=== PATIENT | female | born 1945 | race Caucasian/White ===

== ENCOUNTER 2017-03-19 10:54 | Inpatient (IN) | payer OTHER ==
[~2017-03-19] VITALS: Ht 154.9 cm; Wt 71.3 kg
[~2017-03-19 10:54] MED LIST: AMLO-511 PO; ASCO500T24 PO; ASPI81TA2 PO; CARB200T6 PO; CITA40TA14 PO; CYAN500 PO; DIVA500T35 PO; DOCU-119 PO; DONE10TA PO; FERR-89 PO; FOLI1 PO; GABA-531 PO; LORA0.5T83 PO; MEGE400O4 PO; MULT-1203 PO; NAPR-58 PO; PANT40TA25 PO; PILOC5 PO; PREG50 PO; QUET50TA22 PO; SUMA25TA9 PO; THIA100 PO; THIO50TA PO; TOPI50TA90 PO; TRAM50TA4 PO; TRAZ-144 PO; VITAD1000 PO
[2017-03-19 11:12] LABS: GLUCOSE,POINT OF CARE 112 MG/DL (70-110)
[2017-03-19] MEDS ORDERED: PLEC3TAB PO (11:12)
[2017-03-19] MEDS ORDERED: LINA72CA PO (11:12)
[2017-03-19] MEDS ORDERED: LEVO250 PO (11:12)
[2017-03-19] MEDS ORDERED: METR500 PO (11:12)
[2017-03-19] MEDS ORDERED: ONDANSETRON HCL 4 MG/2 ML VIAL IVP ONE (11:45)
[2017-03-19] MEDS ORDERED: MORPHINE SULFATE 4 MG/ML SYRINGE IVP ONE (11:45)
[2017-03-19 12:01] LABS: BASOPHILS # (AUTO) 0.03 K/uL (0.00-0.20); BASOPHILS % (AUTO) 0.8 % (0.0-2.0); EOSINOPHILS % (AUTO) 0.07 % (1.0-6.0); HEMATOCRIT 31.9 % (36-46); HEMOGLOBIN 10.6 g/dL (12.0-16.0); LYMPHOCYTES % (AUTO) 23.2 % (22.0-44.0); MEAN CORPUSCULAR HEMOGLOBIN 35.9 pg (26.0-34.0); MEAN CORPUSCULAR HGB CONC 33.1 G/dL (31.0-37.0); MEAN CORPUSCULAR VOLUME 108 fL (80-100); MONOCYTES # (AUTO) 0.4 K/uL (0.1-1.0); MONOCYTES % (AUTO) 9.9 % (2.0-9.0); NEUTROPHILS # (AUTO) 2.7 K/uL (1.8-7.7); NEUTROPHILS % (AUTO) 66.1 % (40.0-70.0); PLATELET COUNT (AUTO) 338 K/uL (150-450); RED BLOOD CELL COUNT(AUTO) 2.95 MIL/uL (4.00-5.20); RED CELL DISTRIBUTION WIDTH 18.6 % (11.5-14.5); WHITE BLOOD COUNT (AUTO) 4.2 K/uL (4.5-11.0)
[2017-03-19 12:10] LABS: RBC MORPHOLOGY COMMENT ABNORMAL RBC MORPH
[2017-03-19 12:12] LABS: ANION GAP 9 mmol/L (8-16); CALCIUM, TOTAL 8.4 mg/dL (8.8-10.5); CARBON DIOXIDE 27 mmol/L (22-29); CHLORIDE 92 mmol/L (98-107); CREATININE 0.66 mg/dL (0.60-1.30); GLOMERULAR FILTR. RATE CALC > 60 mL/min (>60); POTASSIUM 3.8 mmol/L (3.5-5.1); SODIUM SERUM 128 mmol/L (136-145); UREA NITROGEN, BLOOD 6 mg/dL (7-18)
[2017-03-19 12:18] LABS: ALANINE AMINOTRANSFERASE 22 U/L (12-78); ALBUMIN 3.8 g/dL (3.4-5.0); ASPARTATE AMINOTRANSFERASE 13 U/L (15-37); BILIRUBIN,TOTAL 0.5 mg/dL (0.1-1.0); TOTAL PROTEIN, SERUM 6.7 g/dL (6.4-8.2)
[2017-03-19] MEDS ORDERED: LORazepam 2 MG/ML VIAL IVP ONE (12:45)
[2017-03-19 12:51] LABS: APPEARANCE,URINE CLEAR (CLEAR); GLUCOSE, URINE (UA) NEGATIVE (NEGATIVE); KETONES,URINE 15 mg/dL (NEGATIVE); LEUKOCYTE ESTERASE ,URINE NEGATIVE (NEGATIVE); OCCULT BLOOD,URINE NEGATIVE (NEGATIVE); PH,URINE 7.5 (5.0-8.0); PROTEIN,URINE NEGATIVE (NEGATIVE)
[2017-03-19 12:53] LABS: ADD UA MICROSCOPIC NO
[2017-03-19] MEDS ORDERED: BARIUM SULFATE 0.1% SUSPENSION 450 ML BOTTLE PO ONE (13:00)
[2017-03-19 13:29] LABS: LACTIC ACID 2.4 mmol/L (0.4-2.0)
[2017-03-19] MEDS ORDERED: IOVERSOL 350 MG/ML 100 ML VIAL ONE (13:56)
[2017-03-19 14:41] LABS: REFLEX LACTIC ACID? YES YES
[2017-03-19] MEDS ORDERED: SODIUM CHLORIDE 0.9% 1,000 ML IV ONE (14:45)
[2017-03-19] MEDS ORDERED: ONDANSETRON HCL 4 MG/2 ML VIAL IVP PRN (18:45)
[2017-03-19] MEDS ORDERED: 0.9% SODIUM CHLORIDE 10 ML SYRINGE IVP PRN ×2 (18:45→21:45)
[2017-03-19] MEDS ORDERED: HYDROCODONE/ACETAMINOPHEN 5-325 MG TABLET PO PRN (18:45)
[2017-03-19] MEDS ORDERED: ACETAMINOPHEN 325 MG TABLET PO PRN (18:45)
[2017-03-19 20:33] VITALS: BP 146/70
[2017-03-19] MEDS ORDERED: LORazepam 0.5 MG TABLET PO PRN (21:45)
[2017-03-19] MEDS ORDERED: MAGNESIUM HYDROXIDE SUSPENSION 30 ML UDCUP PO PRN (21:45)
[2017-03-19] MEDS: MetroNIDAZOLE 500 MG TABLET PO SCH (23:46)
[2017-03-19] MEDS: SUMAtriptan SUCCINATE 25 MG TABLET PO PRN (23:46)
[2017-03-20] VITALS (7 sets, daily range): BP systolic 108–152; BP diastolic 50–85
[2017-03-20] MEDS ORDERED: PNEUMOCOCCAL VACCINE POLYVALENT 0.5 ML VIAL [PPSV23] IM ONE (04:15)
[2017-03-20] MEDS ORDERED: LINACLOTIDE 145 MCG CAPSULE PO SCH (06:30)
[2017-03-20] MEDS ORDERED: LINACLOTIDE 290 MCG CAPSULE PO SCH (06:30)
[2017-03-20 07:18] LABS: ALANINE AMINOTRANSFERASE 22 U/L (12-78); ALBUMIN 3.7 g/dL (3.4-5.0); ANION GAP 9 mmol/L (8-16); ASPARTATE AMINOTRANSFERASE 16 U/L (15-37); BILIRUBIN,TOTAL 0.4 mg/dL (0.1-1.0); CALCIUM, TOTAL 8.7 mg/dL (8.8-10.5); CARBON DIOXIDE 26 mmol/L (22-29); CHLORIDE 102 mmol/L (98-107); CREATININE 0.64 mg/dL (0.60-1.30); GLOMERULAR FILTR. RATE CALC > 60 mL/min (>60); POTASSIUM 3.4 mmol/L (3.5-5.1); SODIUM SERUM 137 mmol/L (136-145); TOTAL PROTEIN, SERUM 6.6 g/dL (6.4-8.2); UREA NITROGEN, BLOOD 4 mg/dL (7-18)
[2017-03-20] MEDS: GABAPENTIN 300 MG CAPSULE PO SCH (08:12)
[2017-03-20] MEDS: CHOLECALCIFEROL (VIT D3) 1,000 UNITS TABLET PO SCH ×2 (08:12→20:51)
[2017-03-20] MEDS: ASPIRIN 81 MG CHEWABLE TABLET PO SCH (08:12)
[2017-03-20] MEDS: DOCUSATE SODIUM 100 MG CAPSULE PO SCH ×2 (08:13→20:51)
[2017-03-20] MEDS: THIAMINE HCL 100 MG TABLET PO SCH ×2 (08:13→22:10)
[2017-03-20] MEDS: MEGESTROL ACETATE 400 MG/10 ML SUSPENSION UDCUP PO SCH (08:13)
[2017-03-20] MEDS: MetroNIDAZOLE 500 MG TABLET PO SCH ×3 (08:13→23:39)
[2017-03-20] MEDS: AmLODIPine BESYLATE 5 MG TABLET PO SCH (08:13)
[2017-03-20] MEDS: PANTOPRAZOLE SODIUM 40 MG DR TABLET PO SCH (08:13)
[2017-03-20] MEDS: PILOCARPINE HCL 5 MG TABLET PO SCH ×3 (08:13→20:51)
[2017-03-20] MEDS: ASCORBIC ACID 500 MG TABLET PO SCH ×2 (08:13→22:10)
[2017-03-20] MEDS: FERROUS SULFATE 325 MG EC TABLET PO SCH ×2 (08:14→16:29)
[2017-03-20] MEDS: CarBAMazepine 200 MG TABLET PO SCH ×3 (08:14→20:50)
[2017-03-20] MEDS: CITALOPRAM HYDROBROMIDE 20 MG TABLET PO SCH (08:14)
[2017-03-20] MEDS: TOPIRAMATE 25 MG TABLET PO SCH ×2 (08:14→20:50)
[2017-03-20] MEDS: POLYETHYLENE GLYCOL 3350 17 GM PACKET PO SCH (08:14)
[2017-03-20] MEDS: CYANOCOBALAMIN 500 MCG TABLET PO SCH (08:14)
[2017-03-20] MEDS: FOLIC ACID 1 MG TABLET PO SCH (08:14)
[2017-03-20] MEDS: DIVALPROEX SODIUM 500 MG DR TABLET PO SCH ×3 (08:14→20:50)
[2017-03-20] MEDS: MULTIVITAMINS, THERAPEUTIC TABLET PO SCH (08:15)
[2017-03-20] MEDS: LEVOFLOXACIN 250 MG TABLET PO SCH (08:15)
[2017-03-20] MEDS: TraMADol HCL 50 MG TABLET PO PRN ×2 (08:18→19:52)
[2017-03-20] MEDS ORDERED: [UNRECOGNIZED DRUG - OTHER] PO SCH (09:00)
[2017-03-20 09:03] LABS: BASOPHILS # (AUTO) 0.05 K/uL (0.00-0.20); BASOPHILS % (AUTO) 0.9 % (0.0-2.0); EOSINOPHILS # (AUTO) 0.04 K/uL (0.00-0.70); EOSINOPHILS % (AUTO) 0.67 % (1.0-6.0); HEMOGLOBIN 10.3 g/dL (12.0-16.0); LYMPHOCYTES # (AUTO) 1.6 K/uL (1.0-4.8); LYMPHOCYTES % (AUTO) 26.5 % (22.0-44.0); MEAN CORPUSCULAR HEMOGLOBIN 35.5 pg (26.0-34.0); MEAN CORPUSCULAR HGB CONC 33.3 G/dL (31.0-37.0); MEAN CORPUSCULAR VOLUME 107 fL (80-100); MONOCYTES # (AUTO) 0.6 K/uL (0.1-1.0); MONOCYTES % (AUTO) 9.7 % (2.0-9.0); NEUTROPHILS # (AUTO) 3.7 K/uL (1.8-7.7); NEUTROPHILS % (AUTO) 62.3 % (40.0-70.0); RED CELL DISTRIBUTION WIDTH 19.1 % (11.5-14.5)
[2017-03-20 09:12] LABS: PLATELET COUNT (AUTO) 318 K/uL (150-450)
[2017-03-20] MEDS: SUMAtriptan SUCCINATE 25 MG TABLET PO PRN (12:09)
[2017-03-20] MEDS ORDERED: 0.9% SODIUM CHLORIDE 10 ML SYRINGE IVP PRN (12:45)
[2017-03-20] MEDS ORDERED: TraZODone HCL 50 MG TABLET PO SCH (21:00)
[2017-03-20] MEDS ORDERED: DONEPEZIL HCL 10 MG TABLET PO SCH (21:00)
[2017-03-20] MEDS ORDERED: PREGABALIN 50 MG CAPSULE PO SCH (21:00)
[2017-03-20] MEDS ORDERED: QUEtiapine FUMARATE 25 MG TABLET PO SCH (21:00)
[2017-03-21 04:44] VITALS: BP 117/59
[2017-03-21 07:04] LABS: BASOPHILS # (AUTO) 0.04 K/uL (0.00-0.20); BASOPHILS % (AUTO) 0.8 % (0.0-2.0); EOSINOPHILS # (AUTO) 0.07 K/uL (0.00-0.70); EOSINOPHILS % (AUTO) 1.46 % (1.0-6.0); HEMOGLOBIN 10.2 g/dL (12.0-16.0); LYMPHOCYTES % (AUTO) 40.1 % (22.0-44.0); MEAN CORPUSCULAR HEMOGLOBIN 36.1 pg (26.0-34.0); MEAN CORPUSCULAR HGB CONC 32.9 G/dL (31.0-37.0); MEAN CORPUSCULAR VOLUME 110 fL (80-100); MONOCYTES # (AUTO) 0.5 K/uL (0.1-1.0); MONOCYTES % (AUTO) 9.2 % (2.0-9.0); NEUTROPHILS # (AUTO) 2.4 K/uL (1.8-7.7); NEUTROPHILS % (AUTO) 48.6 % (40.0-70.0); PLATELET COUNT (AUTO) 302 K/uL (150-450); RED BLOOD CELL COUNT(AUTO) 2.83 MIL/uL (4.00-5.20); RED CELL DISTRIBUTION WIDTH 19.5 % (11.5-14.5)
[2017-03-21 07:15] VITALS: BP 101/59
[2017-03-21] MEDS: PILOCARPINE HCL 5 MG TABLET PO SCH ×2 (09:38→15:51)
[2017-03-21] MEDS: POLYETHYLENE GLYCOL 3350 17 GM PACKET PO SCH (09:38)
[2017-03-21] MEDS: DIVALPROEX SODIUM 500 MG DR TABLET PO SCH ×2 (09:38→15:50)
[2017-03-21] MEDS: LEVOFLOXACIN 250 MG TABLET PO SCH (09:38)
[2017-03-21] MEDS: TOPIRAMATE 25 MG TABLET PO SCH (09:39)
[2017-03-21] MEDS: CITALOPRAM HYDROBROMIDE 20 MG TABLET PO SCH (09:39)
[2017-03-21] MEDS: CarBAMazepine 200 MG TABLET PO SCH ×2 (09:40→15:50)
[2017-03-21] MEDS: MetroNIDAZOLE 500 MG TABLET PO SCH ×2 (09:40→15:50)
[2017-03-21] MEDS: CHOLECALCIFEROL (VIT D3) 1,000 UNITS TABLET PO SCH (09:40)
[2017-03-21] MEDS: DOCUSATE SODIUM 100 MG CAPSULE PO SCH (09:40)
[2017-03-21] MEDS: CYANOCOBALAMIN 500 MCG TABLET PO SCH (09:40)
[2017-03-21] MEDS: MULTIVITAMINS, THERAPEUTIC TABLET PO SCH (09:40)
[2017-03-21] MEDS: THIAMINE HCL 100 MG TABLET PO SCH (09:40)
[2017-03-21] MEDS: ASCORBIC ACID 500 MG TABLET PO SCH (09:41)
[2017-03-21] MEDS: ASPIRIN 81 MG CHEWABLE TABLET PO SCH (09:41)
[2017-03-21] MEDS: GABAPENTIN 300 MG CAPSULE PO SCH (09:41)
[2017-03-21] MEDS: PANTOPRAZOLE SODIUM 40 MG DR TABLET PO SCH (09:41)
[2017-03-21] MEDS: FERROUS SULFATE 325 MG EC TABLET PO SCH ×2 (09:42→17:47)
[2017-03-21] MEDS: FOLIC ACID 1 MG TABLET PO SCH (09:42)
[2017-03-21] MEDS: MEGESTROL ACETATE 400 MG/10 ML SUSPENSION UDCUP PO SCH (09:42)
[2017-03-21] MEDS: AmLODIPine BESYLATE 5 MG TABLET PO SCH (09:46)
[2017-03-21 11:13] VITALS: BP 126/67
[2017-03-21 16:14] VITALS: BP 121/68
== END 2017-03-21 19:50 | disposition short-term general hospital (02) | DRG 445 ==
LOC: EMS 10:56 → 6N 19:56
PROVIDERS: ADMIT Family Medicine; ATTEND Family Medicine
DX: K91.5 Postcholecystectomy syndrome (principal); E87.1 Hypo-osmolality and hyponatremia; K59.00 Constipation, unspecified; F41.9 Anxiety disorder, unspecified; I25.10 Atherosclerotic heart disease of native coronary artery without angina pectoris; F03.90 Unspecified dementia, unspecified severity, without behavioral disturbance, psychotic disturbance, mood disturbance, and anxiety; F32.9 Major depressive disorder, single episode, unspecified; K21.9 Gastro-esophageal reflux disease without esophagitis; E78.00 Pure hypercholesterolemia, unspecified; I10 Essential (primary) hypertension; G43.909 Migraine, unspecified, not intractable, without status migrainosus; M47.9 Spondylosis, unspecified; M79.7 Fibromyalgia; I70.0 Atherosclerosis of aorta; K57.30 Diverticulosis of large intestine without perforation or abscess without bleeding; K76.89 Other specified diseases of liver; E78.5 Hyperlipidemia, unspecified; G40.909 Epilepsy, unspecified, not intractable, without status epilepticus; G89.4 Chronic pain syndrome; Z79.899 Other long term (current) drug therapy; Z79.82 Long term (current) use of aspirin; Z79.2 Long term (current) use of antibiotics; Z90.710 Acquired absence of both cervix and uterus; Z90.49 Acquired absence of other specified parts of digestive tract; Z87.440 Personal history of urinary (tract) infections; Z86.69 Personal history of other diseases of the nervous system and sense organs; Y83.8 Other surgical procedures as the cause of abnormal reaction of the patient, or of later complication, without mention of misadventure at the time of the procedure; Y73.8 Miscellaneous gastroenterology and urology devices associated with adverse incidents, not elsewhere classified; Y93.89 Activity, other specified; Y92.89 Other specified places as the place of occurrence of the external cause
CPT/HCPCS: 74022; 74177; 76705; 82962; 83605; 83735; 96361; 96374; 96375; 99285; J2060; J2270; J2405

== ENCOUNTER 2018-08-01 01:11 | Emergency (ER) | payer OTHER ==
[~2018-08-01] VITALS: Ht 160 cm; Wt 72.5 kg
[~2018-08-01 01:11] MED LIST changes: -ASPI81TA2 PO; +ASPI81TA39 PO; +CITA-106 PO; -CITA40TA14 PO; +DIVA-78 PO; -DIVA500T35 PO; -DONE10TA PO; +DONE10TA8 PO; +LINA72CA PO; +PLEC3TAB PO; -THIA100 PO; +THIA100T67 PO; +TOPI50TA24 PO; -TOPI50TA90 PO; -TRAZ-144 PO; +TRAZ-219 PO
[2018-08-01] MEDS ORDERED: SODIUM CHLORIDE 0.9% 1,000 ML IV ONE (01:30)
[2018-08-01 01:59] LABS: EOSINOPHILS % (AUTO) 1.1 % (1.0-6.0); HEMATOCRIT 31.7 % (36-46); LYMPHOCYTES # (AUTO) 1.3 K/uL (1.0-4.8); LYMPHOCYTES % (AUTO) 27.7 % (22.0-44.0); MEAN CORPUSCULAR HEMOGLOBIN 36.6 pg (26.0-34.0); MEAN CORPUSCULAR HGB CONC 34.8 G/dL (31.0-37.0); MEAN CORPUSCULAR VOLUME 105 fL (80-100); MONOCYTES # (AUTO) 0.4 K/uL (0.1-1.0); MONOCYTES % (AUTO) 9.2 % (2.0-9.0); PLATELET COUNT (AUTO) 284 K/uL (150-450); RED BLOOD CELL COUNT(AUTO) 3.01 MIL/uL (4.00-5.20); RED CELL DISTRIBUTION WIDTH 20.9 % (11.5-14.5)
[2018-08-01 02:12] LABS: ANION GAP 10 mmol/L (8-16); CALCIUM, TOTAL 8.4 mg/dL (8.8-10.5); CARBON DIOXIDE 29 mmol/L (22-29); CHLORIDE 95 mmol/L (98-107); CREATININE 0.62 mg/dL (0.60-1.30); GLUCOSE,RANDOM 114 mg/dL (70-110); LACTIC ACID 0.8 mmol/L (0.4-2.0); POTASSIUM 3.4 mmol/L (3.5-5.1); SODIUM SERUM 134 mmol/L (136-145); UREA NITROGEN, BLOOD 10 mg/dL (7-18)
[2018-08-01 02:13] LABS: GLOMERULAR FILTR. RATE CALC > 60 mL/min (>60)
[2018-08-01 02:18] LABS: ALANINE AMINOTRANSFERASE 18 U/L (12-78); ALBUMIN 3.7 g/dL (3.4-5.0); ALKALINE PHOSPHATASE 66 U/L (46-116); ASPARTATE AMINOTRANSFERASE 16 U/L (15-37); BILIRUBIN,TOTAL 0.3 mg/dL (0.1-1.0); CARBAMAZEPINE (TEGRETOL) 11.6 mcg/mL (4.0-12.0); LIPASE 98 U/L (73-393); TOTAL PROTEIN, SERUM 6.8 g/dL (6.4-8.2); TROPONIN I < 0.02 ng/mL (0.00-0.05); VALPROIC ACID 5 mcg/mL (50-100)
[2018-08-01 02:19] LABS: B-TYPE NATRIURETIC PEPTIDE 11 pg/mL (0-100)
[2018-08-01 02:28] LABS: AMMONIA 18 umol/L (11-32)
[2018-08-01 02:37] LABS: APPEARANCE,URINE CLEAR (CLEAR); BILIRUBIN,URINE NEGATIVE (NEGATIVE); GLUCOSE, URINE (UA) NEGATIVE (NEGATIVE); KETONES,URINE NEGATIVE (NEGATIVE); LEUKOCYTE ESTERASE ,URINE TRACE (NEGATIVE); NITRATE,URINE NEGATIVE (NEGATIVE); OCCULT BLOOD,URINE NEGATIVE (NEGATIVE); PROTEIN,URINE NEGATIVE (NEGATIVE); UROBILINOGEN,URINE 0.2 mg/dL (<=1.0)
[2018-08-01 02:42] LABS: AMPHET/METH SCREEN,URINE NEGATIVE (NEGATIVE); BARBITURATE SCREEN, URINE NEGATIVE (NEGATIVE); BENZODIAZEPINES SCREEN,URINE NEGATIVE (NEGATIVE); CANNABINOID SCREEN,URINE NEGATIVE (NEGATIVE); COCAINE SCREEN,URINE NEGATIVE (NEGATIVE); METHADONE SCREEN, URINE NEGATIVE (NEGATIVE); OPIATE SCREEN,URINE NEGATIVE (NEGATIVE)
[2018-08-01 02:48] LABS: BACTERIA,URINE Few /HPF (None Seen); RBC,URINE 0-2 /HPF (0-2); WBC,URINE 0-2 /HPF (0-5)
[2018-08-01 02:49] LABS: SQUAMOUS EPITHELIAL CELL,UR Rare /LPF (None Seen)
[2018-08-01 02:50] LABS: PHENCYCLIDINE SCREEN,URINE NEGATIVE (NEGATIVE)
[2018-08-01] MEDS ORDERED: ASPIRIN 325 MG TABLET PO ONE (03:00)
[2018-08-01 06:29] VITALS: BP 131/74
== END 2018-08-01 07:05 | disposition short-term general hospital (02) ==
LOC: EMS 01:12
DX: R41.82 Altered mental status, unspecified (principal); R55 Syncope and collapse; R53.1 Weakness; E87.6 Hypokalemia; G89.4 Chronic pain syndrome; M79.7 Fibromyalgia; K21.9 Gastro-esophageal reflux disease without esophagitis; E78.00 Pure hypercholesterolemia, unspecified; I10 Essential (primary) hypertension; G43.909 Migraine, unspecified, not intractable, without status migrainosus; F41.9 Anxiety disorder, unspecified; I25.10 Atherosclerotic heart disease of native coronary artery without angina pectoris; F32.9 Major depressive disorder, single episode, unspecified; Z90.49 Acquired absence of other specified parts of digestive tract; Z90.710 Acquired absence of both cervix and uterus; Z79.899 Other long term (current) drug therapy
CPT/HCPCS: 36415; 70450; 71045; 80053; 80156; 80164; 80307; 81001; 82140; 83605; 83690; 83880; 84484; 85025; 87040; 87205; 93005; 96360; 96361; 99291; G0480; J7030; 51701